=== PATIENT | male | born 1945 | race Caucasian/White ===

== ENCOUNTER 2022-02-16 10:42 | Emergency (ER) | payer MEDICAID ==
[~2022-02-16] VITALS: Ht 177.8 cm; Wt 111.1 kg
--- NOTE | 2022-02-16 10:45 | NUR ---
REceived pt 76 yrs male came by EMT jenni from [facility] for evaluation remove the skin bettwen his leg
--- NOTE | 2022-02-16 11:00 | NUR ---
SEEN BY DR. LAND
--- NOTE | 2022-02-16 11:15 | NUR ---
BLOOD DROW BY LAB TACK
[2022-02-16 11:29] LABS: BASOPHILS % (AUTO) 0.5 % (0.0-2.0); EOSINOPHILS % (AUTO) 3.7 % (0.0-6.0); HEMATOCRIT 32 % (39-51); HEMOGLOBIN 10.5 g/dL (13.5-17.5); LYMPHOCYTES % (AUTO) 18.4 % (20.0-44.0); MEAN CORPUSCULAR HGB CONC 33 g/dl (31.0-36.0); MEAN CORPUSCULAR VOLUME 78 fL (80-96); MONOCYTES # (AUTO) 0.5 K/uL (0.1-1.30); MONOCYTES % (AUTO) 8.4 % (2.0-12.0); NEUTROPHILS # (AUTO) 3.9 K/uL (1.8-8.9); PLATELET COUNT (AUTO) 210 K/uL (150-450); RED BLOOD CELL COUNT(AUTO) 4.11 MIL/uL (4.5-6.0); WHITE BLOOD COUNT (AUTO) 5.6 K/uL (4.3-11.0)
[2022-02-16] MEDS ORDERED: IV NS 0.9% 1,000 ML BAG IV ONE (11:30)
[2022-02-16 11:55] LABS: ALBUMIN 3.5 g/dL (3.4-5.0); BILIRUBIN,DIRECT 0.1 mg/dL (0.0-0.2); BILIRUBIN,TOTAL 0.2 mg/dL (0.2-1.0); CALCIUM, SERUM 9.2 mg/dL (8.5-10.1); CREATININE 1.2 mg/dL (0.6-1.3); POTASSIUM 4.5 mmol/L (3.5-5.1); TOTAL PROTEIN, SERUM 7.3 g/dL (6.4-8.2)
[2022-02-16] MEDS ORDERED: REPA0.5T6 PO (12:19)
[2022-02-16] MEDS ORDERED: INSU100V11 SQ (12:19)
[2022-02-16] MEDS ORDERED: LINA5TAB PO (12:19)
[2022-02-16] MEDS ORDERED: METF-440 PO (12:19)
[2022-02-16] MEDS ORDERED: ATOR10TA PO (12:19)
[2022-02-16] MEDS ORDERED: HYDR25TA4 PO (12:19)
[2022-02-16] MEDS ORDERED: HYDR-4076 PO (12:19)
[2022-02-16] MEDS ORDERED: FENO145T PO (12:19)
[2022-02-16] MEDS ORDERED: PRED20TA PO (12:19)
[2022-02-16] MEDS ORDERED: DOCU-141 PO (12:19)
[2022-02-16] MEDS ORDERED: CYAN-51 PO (12:19)
[2022-02-16] MEDS ORDERED: POLY17PO4 PO (12:19)
[2022-02-16] MEDS ORDERED: MELA3TAB41 PO (12:19)
[2022-02-16] MEDS ORDERED: FERR325T24 PO (12:19)
[2022-02-16] MEDS ORDERED: INSU100V10 SQ (12:19)
[2022-02-16] MEDS ORDERED: DOXA8TAB79 PO (12:19)
[2022-02-16] MEDS ORDERED: HYDR-4303 PO (12:19)
[2022-02-16] MEDS ORDERED: SIME125C81 PO (12:19)
[2022-02-16] MEDS ORDERED: ASPI-1169 PO (12:19)
[2022-02-16] MEDS ORDERED: MUPI22OI7 TD (12:19)
[2022-02-16] MEDS ORDERED: GABA-532 PO (12:19)
[2022-02-16] MEDS ORDERED: DOXY100C2 PO (12:19)
[2022-02-16] MEDS ORDERED: TRIA15OI2 TP (12:19)
[2022-02-16] MEDS ORDERED: LACT1CAP71 PO (12:19)
[2022-02-16] MEDS ORDERED: MELO-107 PO (12:19)
[2022-02-16] MEDS ORDERED: ACET-868 PO ×2 (12:19)
--- NOTE | 2022-02-16 15:02 | NUR ---
TRANSPORT SET UP WITH [facility], ETA 1600.
[2022-02-16 15:17] LABS: BILIRUBIN,URINE NEGATIVE (NEGATIVE); COLOR,URINE YELLOW (YELLOW); LEUKOCYTE ESTERASE ,URINE NEGATIVE (NEGATIVE); NITRITE, URINE NEGATIVE (NEGATIVE); PH,URINE 6.5 (5.0-8.0); PROTEIN,URINE NEGATIVE (NEGATIVE); UGLUCOSE 2+ mg/dL (NEGATIVE); UROBILINOGEN,URINE 0.2 EU/dL (0.2)
[2022-02-16 15:27] LABS: BACTERIA,URINE Rare /HPF (None Seen); RBC,URINE 0-2 /HPF (0-2); SQUAMOUS EPITHELIAL CELL,UR Few /HPF (None Seen); WBC,URINE 0-2 /HPF (0-3)
--- NOTE | 2022-02-16 16:10 | NUR ---
IV removed. Catheter intact and site benign. Pressure and 4x4 applied to site. No bleeding noted.
--- NOTE | 2022-02-16 16:16 | NUR ---
Patient discharged to home in stable condition. Written and verbal after care instructions given. Patient verbalizes understanding of instruction.
[2022-02-16 17:39] VITALS: BP 154/76
== END 2022-02-16 16:40 ==
LOC: ER 10:42
DX: Z48.00 Encounter for change or removal of nonsurgical wound dressing (principal); Z88.0 Allergy status to penicillin; Z79.899 Other long term (current) drug therapy
CPT/HCPCS: 99285; 96360; 85025; 80048; 83605; 83690; 80076; 81001; 36415; J7030

== ENCOUNTER 2022-02-17 17:39 | Inpatient (IN) | payer MEDICAID ==
[~2022-02-17] VITALS: Ht 177.8 cm; Wt 90.7 kg
[~2022-02-17 17:39] MED LIST: ACET-868 PO; ASPI-1169 PO; ATOR10TA PO; CYAN-51 PO; DOCU-141 PO; DOXA8TAB79 PO; DOXY100C2 PO; FENO145T PO; FERR325T24 PO; GABA-532 PO; HYDR-4076 PO; HYDR-4303 PO; HYDR25TA4 PO; INSU100V10 SQ; INSU100V11 SQ; LACT1CAP71 PO; LINA5TAB PO; MELA3TAB41 PO; MELO-107 PO; METF-440 PO; MUPI22OI7 TD; POLY17PO4 PO; PRED20TA PO; REPA0.5T6 PO; SIME125C81 PO; TRIA15OI2 TP
--- NOTE | 2022-02-17 18:27 | NUR ---
TRAIGE DONE, VSS, AFEBRILE
--- NOTE | 2022-02-17 18:27 | NUR ---
AWAITING FOR BED AVAILABILITY
--- NOTE | 2022-02-17 19:37 | NUR ---
Sent by PCP (Dr. Alexandre) - for evaluation of left groin cellulitis. SEEN BY DR LAND AT [facility] ER AND WAS DISCHARGED BACK TO SNF. PT AWAKE AND ALERT BREATHING UNLABORED V/S WNL.
--- NOTE | 2022-02-17 20:05 | NUR ---
shana sent to lab
--- NOTE | 2022-02-17 20:45 | NUR ---
22G IV STARTED AT LH SALINE LOCKED
--- NOTE | 2022-02-17 21:24 | NUR ---
XRAY AT BEDSIDE
[2022-02-17 21:26] LABS: BASOPHILS % (AUTO) 0.5 % (0.0-2.0); EOSINOPHILS % (AUTO) 3.1 % (0.0-6.0); HEMATOCRIT 31 % (39-51); HEMOGLOBIN 10.5 g/dL (13.5-17.5); LYMPHOCYTES # (AUTO) 1.2 K/uL (0.8-4.8); LYMPHOCYTES % (AUTO) 22.8 % (20.0-44.0); MEAN CORPUSCULAR HGB CONC 33 g/dl (31.0-36.0); MEAN CORPUSCULAR VOLUME 78 fL (80-96); MONOCYTES # (AUTO) 0.4 K/uL (0.1-1.30); MONOCYTES % (AUTO) 8.5 % (2.0-12.0); NEUTROPHILS # (AUTO) 3.4 K/uL (1.8-8.9); NEUTROPHILS % (AUTO) 65.1 % (43.0-81.0); PLATELET COUNT (AUTO) 203 K/uL (150-450); RED BLOOD CELL COUNT(AUTO) 4.06 MIL/uL (4.5-6.0); WHITE BLOOD COUNT (AUTO) 5.2 K/uL (4.3-11.0)
[2022-02-17 21:34] LABS: CALCIUM, SERUM 8.9 mg/dL (8.5-10.1); CREATININE 1.2 mg/dL (0.6-1.3); POTASSIUM 4.6 mmol/L (3.5-5.1)
[2022-02-17 21:40] LABS: ALBUMIN 3.4 g/dL (3.4-5.0); BILIRUBIN,DIRECT 0.1 mg/dL (0.0-0.2); BILIRUBIN,TOTAL 0.2 mg/dL (0.2-1.0); TOTAL PROTEIN, SERUM 6.9 g/dL (6.4-8.2)
[2022-02-17] MEDS ORDERED: MORPHINE SULFATE INJ 2 MG/ML DISP.SYRIN IV PRN (23:00)
[2022-02-17] MEDS ORDERED: MAGNESIUM HYDROXIDE 30 ML UDC PO PRN (23:00)
[2022-02-17] MEDS ORDERED: MAG HYDROX/AL HYDROX/SIMETH 30 ML UDC PO PRN (23:00)
[2022-02-17] MEDS ORDERED: IV LR 1000 ML 1,000 ML IV PRN (23:00)
[2022-02-17] MEDS ORDERED: DEXTROSE 50%-WATER 50 ML DISP.SYRIN IV PRN (23:00)
[2022-02-17] MEDS ORDERED: ONDANSETRON HCL/PF 4 MG/2 ML VIAL IVP PRN (23:00)
[2022-02-17] MEDS ORDERED: ACETAMINOPHEN 325 MG TABLET PO PRN (23:00)
[2022-02-17] MEDS ORDERED: Z GUARD REMEDY 4 OZ OINT TP PRN (23:00)
[2022-02-18 06:27] LABS: BASOPHILS % (AUTO) 0.7 % (0.0-2.0); HEMATOCRIT 33 % (39-51); HEMOGLOBIN 10.5 g/dL (13.5-17.5); LYMPHOCYTES # (AUTO) 1.4 K/uL (0.8-4.8); LYMPHOCYTES % (AUTO) 27.2 % (20.0-44.0); MEAN CORPUSCULAR HGB CONC 32 g/dl (31.0-36.0); MEAN CORPUSCULAR VOLUME 79 fL (80-96); MONOCYTES # (AUTO) 0.5 K/uL (0.1-1.30); MONOCYTES % (AUTO) 9.3 % (2.0-12.0); NEUTROPHILS % (AUTO) 57.8 % (43.0-81.0); PLATELET COUNT (AUTO) 204 K/uL (150-450); RED BLOOD CELL COUNT(AUTO) 4.15 MIL/uL (4.5-6.0); WHITE BLOOD COUNT (AUTO) 5.2 K/uL (4.3-11.0)
[2022-02-18 06:56] LABS: THYROID STIMULATING HORMONE 0.403 uIU/mL (0.358-3.74)
[2022-02-18 07:00] LABS: CALCIUM, SERUM 8.7 mg/dL (8.5-10.1); MAGNESIUM 2.3 mg/dL (1.8-2.4); PHOSPHORUS 4.1 mg/dL (2.5-4.9); POTASSIUM 4.5 mmol/L (3.5-5.1)
--- NOTE | 2022-02-18 07:40 | NUR ---
BED 304-1
--- NOTE | 2022-02-18 08:03 | NUR ---
report given to melany arellano for rekha
--- NOTE | 2022-02-18 08:04 | NUR ---
SL NOTED IN L HAND 22 G
[2022-02-18 08:30] VITALS: BP 159/66
--- NOTE | 2022-02-18 08:45 | NUR ---
MS RN NOTE RECEIVED PATIENT FROM ER, PATIENT TRANSPORTED ON A GURNEY ACCOMPANIED BY RN. PATIENT TRANSFERRED TO BED AND COMFORT MEASURES PROVIDED. PATIENT IS ALERT AND ORIENTED X 4, ABLE TO MAKE NEEDS KNOWN. PATIENT IS ON ROOM AIR WITH EQUAL AND UNLABORED BREATHING, WITH NO RESPIRATORY DISTRESS NOTED. ON MODERATE TO HIGH BACK REST. COMFORT MEASURES PROVIDED. PATIENT WITH IV ACCESS ON THE LEFT HAND G 22, WITH LR RUNNING AT 75 ML/HR. INFUSING WELL. VITALS SIGNS MONITORED AND RECORDED. HOSPITALIST ISA AWARE OF ADMISSION. WILL CONTINUE TO MONITOR PATIENT. SAFETY MEASURES ENSURED WITH BED ON LOWEST LOCKED POSITION. SIDERAILS RAISED, AND CALL LIGHT WITHIN REACH AT ALL TIMES. IN STABLE CONDITION. FOR POSSIBLE OR TODAY.
[2022-02-18] MEDS: PANTOPRAZOLE 40 MG VIAL IV SCH (09:16)
[2022-02-18] MEDS ORDERED: BUPIVACAINE 0.5 % PF 150 MG/30 ML VIAL ONE (09:42)
[2022-02-18] MEDS ORDERED: LIDOCAINE HCL/MPF 1% 30 ML VIAL IJ ONE (09:42)
--- NOTE | 2022-02-18 10:40 | NUR ---
MS RN NOTE REFUSED TO HAVE PICTURES TAKEN. WITH WOUND CARE NURSE MIO AT BEDSIDE. BUT ALLOWED SOME DEGREE OF SKIN ASSESSMENT. NOTED DRY WOUNDS ON THE RIGHT THIGH WITH MULTIPLE SITES. WTIH SKIN MASS, LARGE SKIN TAG ON THE LEFT BUTTOCKS WITH APPROXIMATELY 2CM BAS AND LARGER CIRMUMFERENCE DISTALLY. NOTED SOME BLISTERS ON THE LEFT UPPER THIGH/ BUTTOCKS WELL. IN STABLE CONDITION.
[2022-02-18] MEDS ORDERED: BUPIVACAINE MPF 0.5% W/EPI INJ 30 ML VIAL ONE (11:37)
--- NOTE | 2022-02-18 11:49 | NUR ---
MS RN NOTE PATIENT PICKED UP BY OR NURSES AROUND 1145. PATIENT IN STABLE CONDITION.
[2022-02-18] MEDS: BLOOD SUGAR DIAGNOSTIC 1 EACH STRIP IN SCH ×3 (11:59→23:04)
--- NOTE | 2022-02-18 12:55 | NUR ---
MS RN NOTE BACK FROM OR. ALERT AND ORIENTED WITH NO SIGNS OF DISTRESS. SURGERY DONE WITH SURGICAL SITE ON THE LEFT BUTTOCKS COVERED WITH DRY DRESSSING, DRY AND INTACT. IN STABLE CONDITION. HOSPITALIST WILIAM NOTIFIED OF LUIS'S RETURN TO UNIT.
[2022-02-18 16:00] VITALS: BP 128/64
[2022-02-18] MEDS: INSULIN REGULAR, HUMAN 100 UNIT/ML 3 ML VIAL SQ PRN ×2 (17:09→23:02)
--- NOTE | 2022-02-18 18:48 | NUR ---
MS RN CLOSING NOTE PATIENT IS ALERT AND ORIENTED X 4, ABLE TO MAKE NEEDS KNOWN. PATIENT IS ON ROOM AIR WITH EQUAL AND UNLABORED BREATHING, WITH NO RESPIRATORY DISTRESS NOTED. ON MODERATE TO HIGH BACK REST. COMFORT MEASURES PROVIDED. PATIENT WITH IV ACCESS ON THE LEFT HAND G 22, ON SALINE LOCK, PATENT AND INTACT. SAFETY MEASURES ENSURED WITH BED ON LOWEST LOCKED POSITION. SIDERAILS RAISED, AND CALL LIGHT WITHIN REACH AT ALL TIMES. IN STABLE CONDITION. S/P OR, WITH DRY DRESSING, DRY AND INTACT. NO SIGNS OF BLEEDING NOTED. NO COMPLAIN OF PAIN OR DISCOMFORT. IN STABLE CONDITION. WILL ENDORSE TO NEXT SHIFT FOR CONTINUITY OF CARE.
--- NOTE | 2022-02-18 19:20 | NUR ---
MS RN OPENING NOTE PATIENT IS ALERT AND ORIENTED X 4, ABLE TO MAKE NEEDS KNOWN. ON ROOM AIR WITH UNLABORED BREATHING, AND NO RESPIRATORY DISTRESS NOTED. IV ACCESS ON TO LEFT HAND G 22 SALINE LOCK, IV PATENT AND INTACT. SAFETY MEASURES OBSERVED: BED TO LOWEST LOCKED POSITION, SIDE RAILS RAISED X 2, AND CALL LIGHT. S/P MASS REMOVAL WITH DRESSING DRY AND INTACT. NO SIGNS OF BLEEDING NOTED. NO COMPLAIN OF PAIN OR DISCOMFORT AT THIS TIME. WILL CONTINUE TO MONITOR PT.
[2022-02-18 20:00] VITALS: BP 168/82
[2022-02-18 21:10] LABS: BILIRUBIN,URINE NEGATIVE (NEGATIVE); COLOR,URINE YELLOW (YELLOW); LEUKOCYTE ESTERASE ,URINE NEGATIVE (NEGATIVE); NITRITE, URINE NEGATIVE (NEGATIVE); PROTEIN,URINE NEGATIVE (NEGATIVE); UGLUCOSE 3+ mg/dL (NEGATIVE); UROBILINOGEN,URINE 0.2 EU/dL (0.2)
[2022-02-18 21:55] LABS: BACTERIA,URINE None seen /HPF (None Seen); RBC,URINE 0-2 /HPF (0-2); SQUAMOUS EPITHELIAL CELL,UR 0-2 /HPF (None Seen); WBC,URINE 0-2 /HPF (0-3)
[2022-02-19 07:00] VITALS: BP 149/53
--- NOTE | 2022-02-19 07:10 | NUR ---
MS RN OPENING NOTE PATIENT IS ALERT AND ORIENTED X 3-4, ABLE TO MAKE NEEDS KNOWN. PATIENT IS ON ROOM AIR WITH EQUAL AND UNLABORED BREATHING, WITH NO RESPIRATORY DISTRESS NOTED. ON MODERATE TO HIGH BACK REST. COMFORT MEASURES PROVIDED. PATIENT WITH IV ACCESS ON THE LEFT HAND G 22, ON SALINE LOCK, PATENT AND INTACT. SAFETY MEASURES ENSURED WITH BED ON LOWEST LOCKED POSITION. SIDERAILS RAISED, AND CALL LIGHT WITHIN REACH AT ALL TIMES. IN STABLE CONDITION. S/P OR, WITH DRY DRESSING, DRY AND INTACT. NO SIGNS OF BLEEDING NOTED. NO COMPLAIN OF PAIN OR DISCOMFORT. IN STABLE CONDITION.
--- NOTE | 2022-02-19 07:15 | NUR ---
MS RN CLOSING NOTE PATIENT A/O X 4, ABLE TO MAKE NEEDS KNOWN. ON ROOM AIR, BREATHING UNLABORED; NO RESPIRATORY DISTRESS NOTED. COMFORT MEASURES PROVIDED. IV ACCESS ON THE LEFT HAND G 22 SALINE LOCK, IV PATENT AND INTACT. SAFETY MEASURES IN PLACE: BED ON LOWEST LOCKED POSITION. SIDE RAILS UP X 2, AND CALL LIGHT WITHIN REACH. IN STABLE CONDITION. NO COMPLAIN OF PAIN OR DISCOMFORT AT THIS TIME. WILL ENDORSE TO NEXT SHIFT NURSE FOR CONTINUITY OF CARE.
[2022-02-19] MEDS: BLOOD SUGAR DIAGNOSTIC 1 EACH STRIP IN SCH ×3 (07:25→17:35)
[2022-02-19] MEDS: INSULIN REGULAR, HUMAN 100 UNIT/ML 3 ML VIAL SQ PRN ×3 (07:26→16:57)
[2022-02-19] MEDS: PANTOPRAZOLE 40 MG VIAL IV SCH (08:29)
--- NOTE | 2022-02-19 11:12 | NUR ---
MS RN NOTE SEEN BY HOSPITALIST Amy MOSS, IN STABLE CONDITION.
[2022-02-19 16:00] VITALS: BP 156/64
--- NOTE | 2022-02-19 16:00 | NUR ---
MS RN NOTE PATIENT FOR DISCHARGE WITH ORDERS MADE AND CARRIED OUT. HEALTH TEACHING DONE AND VERBALZIED UNDERSTANDIGN AND APPRECIAITON. COMFORT MEASURES PROVIDED. NOT IN DISTESS.
--- NOTE | 2022-02-19 18:55 | NUR ---
MS RN CLOSING NOTE PATIENT IS ALERT AND ORIENTED X 3-4, ABLE TO MAKE NEEDS KNOWN. PATIENT IS ON ROOM AIR WITH EQUAL AND UNLABORED BREATHING, WITH NO RESPIRATORY DISTRESS NOTED. ON MODERATE TO HIGH BACK REST. COMFORT MEASURES PROVIDED. PATIENT WITH IV ACCESS ON THE LEFT HAND G 22, ON SALINE LOCK, PATENT AND INTACT. SAFETY MEASURES ENSURED WITH BED ON LOWEST LOCKED POSITION. SIDERAILS RAISED, AND CALL LIGHT WITHIN REACH AT ALL TIMES. IN STABLE CONDITION. S/P OR, WITH DRY DRESSING, DRY AND INTACT. PATIENT FOR DISCHARGE, AWAITING AMBULANCE TO PICK-UP PATIENT.
--- NOTE | 2022-02-19 19:20 | NUR ---
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
[2022-02-20] MEDS ORDERED: PANTOPRAZOLE 40 MG TABLET.DR PO SCH (07:30)
== END 2022-02-19 19:25 | DRG 364 ==
LOC: ER 17:41 → TRANSITION 02-18 00:30 → MED 02-18 07:49
PROVIDERS: ADMIT Nurse Practitioner Family; ATTEND Registered Nurse
PROC: 0JB90ZZ Excision of Buttock Subcutaneous Tissue and Fascia, Open Approach (ICD-10-PCS; principal; 2022-02-18)
PROC: 0JQ90ZZ Repair Buttock Subcutaneous Tissue and Fascia, Open Approach (ICD-10-PCS; 2022-02-18)
DX: D17.39 Benign lipomatous neoplasm of skin and subcutaneous tissue of other sites (principal); D50.9 Iron deficiency anemia, unspecified; E11.9 Type 2 diabetes mellitus without complications; E78.5 Hyperlipidemia, unspecified; I10 Essential (primary) hypertension; Z20.822 Contact with and (suspected) exposure to COVID-19; Z88.1 Allergy status to other antibiotic agents; Z79.84 Long term (current) use of oral hypoglycemic drugs; Z79.4 Long term (current) use of insulin; Z79.899 Other long term (current) drug therapy; Z79.82 Long term (current) use of aspirin; R79.89 Other specified abnormal findings of blood chemistry; I70.0 Atherosclerosis of aorta
CPT/HCPCS: 36415; 71045-TC; 80048-TC; 80076-TC; 81001; 82728-TC; 82962-TC; 83540-TC; 83735-TC; 84100-TC; 84443-TC; 85025-TC; 85730-TC; 87081-TC; 97530-TC; A6209; A6402; C9113; C9803; G0378; J1815; J2270; J2405; J3490; J7120